=== PATIENT | male | born 1985 | race African-American/Black ===

== ENCOUNTER 2024-07-14 15:42 | Inpatient (IN) | payer OTHER ==
[2024-07-14 17:22] VITALS: BMI 18.1
[2024-07-14] MEDS ORDERED: guaiFENesin 600 MG TABLET.ER (FP) PO PRN (17:32)
[2024-07-14] MEDS ORDERED: IBUPROFEN 400 MG TABLET (FP) PO PRN (17:32)
[2024-07-14] MEDS ORDERED: IBUPROFEN 600 MG TABLET (FP) PO PRN (17:32)
[2024-07-14] MEDS ORDERED: NALOXONE (NARCAN) HCL 4 MG/0.1 ML SPRAY NS PRN (17:32)
[2024-07-14] MEDS ORDERED: BENZONATATE 200 MG CAPSULE PO PRN (17:32)
[2024-07-14] MEDS ORDERED: POLYETHYLENE GLYCOL (HEALTHYLAX) 3350 17 GM PACKET PO PRN (17:32)
[2024-07-14] MEDS ORDERED: LOPERAMIDE HCL 2 MG CAPSULE PO PRN (17:32)
[2024-07-14] MEDS ORDERED: BENZOCAINE/MENTHOL (CHLORASEPTIC ) LOZENGE MM PRN (17:32)
[2024-07-14] MEDS ORDERED: MAG HYDROX/AL HYDROX/SIMETH 30 ML UNIT-DOSE CUP PO PRN (17:32)
[2024-07-14] MEDS ORDERED: ONDANSETRON *ODT* 4 MG TABLET SL PRN (17:32)
[2024-07-14] MEDS ORDERED: DICYCLOMINE HCL 10 MG CAPSULE PO PRN (17:32)
[2024-07-14] MEDS ORDERED: chlordiazePOXIDE HCL 25 MG CAPSULE PO PRN (17:32)
[2024-07-14] MEDS ORDERED: METHOCARBAMOL 500 MG TABLET PO PRN (17:32)
[2024-07-14] MEDS ORDERED: MAGNESIUM HYDROX 2400MG/30ML ORAL SUSPENSION 30 ML CUP PO PRN (17:32)
[2024-07-14] MEDS ORDERED: BISMUTH SUBSALICYLATE 524 MG/30 ML PO PRN (17:32)
[2024-07-14] MEDS ORDERED: ALBUTEROL SO4 HFA INHALER IH PRN (17:51)
[2024-07-14] MEDS: THIAMINE 100 MG TABLET PO SCH (23:07)
[2024-07-14] MEDS: MELATONIN 5 MG TABLETS PO SCH (23:07)
[2024-07-14] MEDS: chlordiazePOXIDE HCL 25 MG CAPSULE PO SCH (23:08)
[2024-07-15] MEDS: PRENATAL VITAMINS W/ FOLIC ACID TABLET (FP) PO SCH (10:15)
[2024-07-15] MEDS: PANTOPRAZOLE 40 MG TABLET PO SCH (10:15)
[2024-07-15 11:26] LABS: HEMOGLOBIN 11.8 g/dL (13.7-17.5); MCHC 31.9 g/dl (32.3-36.5); MEAN PLT VOLUME 8.9 fl (9.4-12.4); PLATELET COUNT 470 x10^3/uL (163-337); RDW 13.7 % (12.0-15.6)
[2024-07-15 11:32] LABS: CHLORIDE 108 mmol/L (98-107); POTASSIUM 4.3 mmol/L (3.5-5.1); SODIUM 141 mmol/L (136-145)
[2024-07-15 11:43] LABS: BILIRUBIN,TOTAL 0.3 mg/dL (0.2-1); SGOT/AST 46 U/L (15-37); SGPT/ALT 30 U/L (13-61)
[2024-07-15 11:45] LABS: ALBUMIN 3.5 g/dl (3.4-5.0); ANION GAP 7 mmol/L (4-13); BLOOD UREA NITROGEN 14.5 mg/dL (7-18); CALCIUM 9.7 mg/dL (8.5-10.1); CO2 26 mmol/L (21-32); GLUCOSE,RANDOM 111 mg/dL (74-106); TOT PROT 6.7 g/dl (6.4-8.2)
[2024-07-15 11:46] LABS: ALK PHOS 104 U/L (45-117)
[2024-07-15 11:48] LABS: CREATININE 0.9 mg/dL (0.55-1.3)
[2024-07-15] MEDS: QUEtiapine FUMARATE 50 MG TABLET PO ONE (13:59)
[2024-07-15] MEDS: QUEtiapine FUMARATE 50 MG TABLET PO SCH (22:20)
[2024-07-16] MEDS: chlordiazePOXIDE HCL 25 MG CAPSULE PO SCH (05:59)
[2024-07-16] MEDS: ACETAMINOPHEN 325 MG TABLET (FP) PO PRN (06:00)
[2024-07-16] MEDS: NICOTINE POLACRILEX 2 MG GUM BUC PRN (23:40)
[2024-07-17] MEDS ORDERED: chlordiazePOXIDE HCL 10 MG CAPSULE PO PRN
[2024-07-17] MEDS: chlordiazePOXIDE HCL 10 MG CAPSULE PO SCH (05:55)
[2024-07-17] MEDS: NICOTINE 14 MG/24 HOURS TOPICAL PATCH TD SCH (10:32)
[2024-07-17] MEDS: QUEtiapine FUMARATE 50 MG TABLET PO ONE (13:14)
[2024-07-17] MEDS: hydrOXYzine PAMOATE 25 MG CAPSULE (FP) PO PRN (17:33)
[2024-07-17 17:47] VITALS: BP 104/88; PULSE 108; RESP 18; TEMP 98.2
[2024-07-17] MEDS ORDERED: QUEtiapine FUMARATE 100 MG TABLET (FP) PO SCH (22:00)
[2024-07-17] MEDS ORDERED: MIRTAZAPINE 15 MG TABLET (FP) PO SCH (22:00)
[2024-07-18] MEDS ORDERED: chlordiazePOXIDE HCL 10 MG CAPSULE PO SCH (05:00)
[2024-07-19] MEDS ORDERED: chlordiazePOXIDE HCL 10 MG CAPSULE PO ONE (05:00)
== END 2024-07-17 19:25 | DRG 774 ==
LOC: YASAS 15:42 → Y3N 19:19
PROVIDERS: ADMIT Allergy & Immunology; ATTEND Psychiatry & Neurology Pain Medicine
PROC: HZ2ZZZZ Detoxification Services for Substance Abuse Treatment (ICD-10-PCS; principal; 2024-07-14)
DX: F10.230 Alcohol dependence with withdrawal, uncomplicated (principal); F14.20 Cocaine dependence, uncomplicated; F12.20 Cannabis dependence, uncomplicated; F17.210 Nicotine dependence, cigarettes, uncomplicated; F19.24 Other psychoactive substance dependence with psychoactive substance-induced mood disorder; G47.00 Insomnia, unspecified; K21.9 Gastro-esophageal reflux disease without esophagitis; M54.50 Low back pain, unspecified; G89.29 Other chronic pain; R45.851 Suicidal ideations; Z86.19 Personal history of other infectious and parasitic diseases; Z59.00 Homelessness unspecified; Z88.0 Allergy status to penicillin
CPT/HCPCS: 36415; 80053; 80305; 80307; 85027; 86780; 93005; 93010